=== PATIENT | male | born 1950 | race Caucasian/White ===

== ENCOUNTER 2018-12-01 12:47 | Inpatient (IN) | payer OTHER ==
[~2018-12-01] VITALS: Ht 172.7 cm; Wt 81.6 kg
[~2018-12-01 12:47] MED LIST: MEVACOR 20 MG T20 MG PO; NAPROSYN500 MG PO; SYNTHROID200 MCG PO
[2018-12-01 15:23] VITALS: BP 152/84
[2018-12-01] MEDS ORDERED: OMEPRAZOLE 20 M20 M1 PO (16:04)
[2018-12-01 19:51] VITALS: BP 165/87
--- NOTE | 2018-12-01 20:12 | NUR ---
ARRIVED TO FLOOR FROM [facility] VIA AMBULANCE. PATIENT ALERT AND ORIENTED X 4. ADMISSION HISTORY AND ASSESSMENT COMPLETED. PATIENT 95% ON 2L/NC. PATIENT BECOMES VERY SOB WITH TALKING, ACTIVITY. CONSULTED DR. CHANG AND RECEIVED ORDER FOR TELEMETRY. TRANSFERRED TO ROOM 360 VIA AT 1999. REPORT CALLED TO YENNIFER ON 3W. MEDICATED X 1 WITH TYLENOL FOR HEADACHE AND HELPFUL. ALL ADMISSION PAPERWORK SIGNED. UP AD EVONNE TO BATHROOM. PATIENT STATED NOT EATING WELL BECAUSE FOOD DOESN'T TASTE GOOD. ORDERED ENSURE SUPPLEMENTS WITH MEALS.
[2018-12-01 20:30] VITALS: BP 178/61
--- NOTE | 2018-12-01 22:58 | NUR ---
PT ARRIVED FROM [address] [place] [address] VIA W/C AND PLACED IN ROOM 360. PT ON O2 AT 2L PER NC. REPORTS OCCASIONAL EPISODES OF SOA EVEN WITH JUST SPEAKING. ENCOURAGED PACING OF ALL ACTIVITIES. VOICED UNDERSTANDING TO CALL AND REPORT ANY SOA.
[2018-12-02 04:00] VITALS: BP 168/78
[2018-12-02 05:06] LABS: HEMATOCRIT 40.4 % (42.0-52.0); HEMOGLOBIN 13.1 gm/dL (14.0-18.0); MCH 29.3 pg (26.0-34.0); MCHC 32.4 g/dL (28.0-37.0); MCV 90.6 fL (80.0-100.0); RBC 4.46 mil/uL (4.50-6.00); RDW 14.1 % (10.5-14.5); WBC 16.1 thou/uL (4.0-11.0)
[2018-12-02 05:18] LABS: CALCIUM 9.3 mg/dL (8.5-10.1); CREATININE 0.9 mg/dL (0.7-1.3); POTASSIUM 3.5 mmol/L (3.5-5.1)
--- NOTE | 2018-12-02 06:17 | NUR ---
PT MAKING SLOW PROGRESS TOWARDS GOALS. REPORTS OCCASIONAL EPISODES OF SOA THAT REPORTEDLY RESOLVE WITH REST. NO COMPLAINTS VOICED OVERNIGHT.
[2018-12-02 07:16] VITALS: BP 173/87
[2018-12-02 15:49] VITALS: BP 138/72
[2018-12-02 19:15] VITALS: BP 152/89
[2018-12-03 04:12] VITALS: BP 176/93
--- NOTE | 2018-12-03 05:55 | NUR ---
PT MAKING SLOW PROGRESS TOWARDS GOALS. ON O2 AT 2L PER NC THROUGHOUT THE NIGHT. NO SOA EPISODES REPORTED WHEN UP TO TOILET OR AT REST. OCCASIONAL CONGESTED COUGH. SEE CHARTING.
[2018-12-03 06:28] VITALS: BP 152/93
[2018-12-03 07:48] VITALS: BP 167/100
[2018-12-03 16:16] VITALS: BP 162/89
--- NOTE | 2018-12-03 18:30 | NUR ---
PT IS HAVING A BRONCH TOMORROW @ 0800 WITH ADDI CHANG...CONSENT SIGNED...WILL BE NPO AFTER MIDNIGHT
[2018-12-03 19:40] VITALS: BP 162/94
[2018-12-04] VITALS (9 sets, daily range): BP systolic 136–156; BP diastolic 84–96
[2018-12-04] MEDS ORDERED: PREDNISONE 10 M10 MG PO (11:33)
[2018-12-04] MEDS ORDERED: LEVAQUIN 500 M500 M2 PO (11:33)
--- NOTE | 2018-12-04 12:07 | NUR ---
ASSESSMENT: CM REVIEWED CHART AND MET WITH PATIENT AT THE BEDSIDE. PT WAS ADMITTED WITH PNEUMONIA AND WAS TRANSFERED FROM [place]. PT LIVES IN A HOUSE WITH HIS . PT REPORTS HE HAS ABOUT 3 STEPS TO ENTER WITH NO HANDRAILS. PT REPORTS HE DOES NOT HAVE TO USE ANY STEPS ONCE INSIDE. PT STATES HE AMBULATES INDEPENDENTLY. PT REPORTS THAT HE DOES NOT USE ANY DME OR HAVE THE NEED FOR IT. PT HAS NOT HAD HH IN THE PAST NOR BEEN TO SNF/REHAB. PT DOES NOT ANTICIPATE HAVING ANY NEEDS AT DISCHARGE. PT IS TO HAVE BRONCH TODAY AND MAY POSSIBLY DISCHARGE AFTER.
[2018-12-04] MEDS ORDERED: HOME OXYGEN (15:01)
--- NOTE | 2018-12-04 16:41 | NUR ---
PT HAD BRONCH THIS MORN...WILL HAVE RESULTS IN 10-14 DAYS PER PCP...WILL DISCHARGE TODAY ON O2 1L...
--- NOTE | 2018-12-06 10:07 | PATH ---
[facility] [address] [address] PATHOLOGY RPT PROCEDURE Name: EMELYN CARPIO Room #: 360-P [facility]#: [id number] Admission: 12/01/18 Date of : 52 Discharge: 12/04/18 Report #: [id number] Path Case #: [id number] Note LCA Accession Number: [id number] TESTS RESULT FLAG UNITS REF RANGE LAB Clinician Provided Cytology Information No. of containers..01 Other (Miscellaneous) Source: SLICK MICRO BRUSH TIP DIAGNOSIS: SLICK MICRO BRUSH TIP NEGATIVE FOR MALIGNANT CELLS. NORMAL BRONCHIAL CELLS ARE PRESENT. Pathologist ICD10: 02 J18.9 Signed out by: 02 Juany Cazares MD, Pathologist NPI- [id number] Performed by: Pricilla Patino Bean Picker ([facility]) Gross description: 01 16 ML, COLORLESS, CLEAR /LCS 03/06/1840 0000 Local FLAG LEGEND: L-Low Normal,H-High Normal,LL-Alert Low,HH-Alert High <-Panic Low,>-Panic High,A-Abnormal,AA-Critical Abnormal Performed at: [address] [place] [address] Darin Olsen MD, [address] [address] Juany Cazares MD, Specimen Comment: A courtesy copy of this report has been sent to Specimen Comment: [phone], . Specimen Comment: Report sent to DR CHANG / DR SELLERS Specimen Comment: Report sent to Performed at: [address], [place], [place] [id number] MD Darin Olsen MD Phone: [phone]
--- NOTE | 2018-12-06 10:07 | PATH ---
[facility] [address] [facility] [place] [address] PATHOLOGY RPT PROCEDURE Name: EMELYN CARPIO Room #: 360-P [facility] IN [facility]#: [id number] Admission: 12/01/18 Date of : 52 Discharge: 12/04/18 Report #: [id number] Path Case #: [id number] Note LCA Accession Number: [id number] TESTS RESULT FLAG UNITS REF RANGE LAB Clinician Provided Cytology Information No. of containers..01 Other (Miscellaneous) Source: SLICK BRUSH TIP BRUSHI DIAGNOSIS: 02 SLICK BRUSH TIP BRUSHI NEGATIVE FOR MALIGNANT CELLS. REACTIVE BRONCHIAL CELLS ARE PRESENT. Pathologist ICD10: 02 J18.9 Signed out by: 02 Juany Cazares MD, Pathologist NPI- [id number] Performed by: 01 Pricilla Patino Vascular Neurologist ([facility]) Gross description: 01 10 ML, COLORLESS, CLEAR /LCS 03/06/1840 0000 Local FLAG LEGEND: L-Low Normal,H-High Normal,LL-Alert Low,HH-Alert High <-Panic Low,>-Panic High,A-Abnormal,AA-Critical Abnormal Performed at: [address] [place] [address] Darin Olsen MD, [address] [address] Juany Cazares MD, Specimen Comment: A courtesy copy of this report has been sent to Specimen Comment: [phone], . Specimen Comment: Report sent to DR CHANG / DR SELLERS Specimen Comment: Report sent to Performed at: [address], [place], [place] [id number] MD Darin Olsen MD Phone: [phone]
--- NOTE | 2018-12-06 14:07 | PATH ---
[facility] [address] [place] [address] PATHOLOGY RPT PROCEDURE Name: EMELYN CARPIO Room #: 360-P [facility] IN [facility]#: [id number] Admission: 12/01/18 Date of : 52 Discharge: 12/04/18 Report #: [id number] Path Case #: [id number] Note LCA Accession Number: [id number] TESTS RESULT FLAG UNITS REF RANGE LAB Clinician Provided Cytology Information No. of containers..01 Other (Miscellaneous) Source: SLICK BRUSHING SLIDES DIAGNOSIS: 02 SLICK BRUSHING SLIDES NEGATIVE FOR MALIGNANT CELLS. REACTIVE BRONCHIAL CELLS ARE PRESENT. AIR-DRYING ARTIFACT WITH LACK OF CELL PRESERVATION. Pathologist ICD10: 02 J18.9 Signed out by: 02 Juany Cazares MD, Pathologist NPI- [id number] Performed by: 01 Pricilla Patino Primary Operator ([facility]) FLAG LEGEND: L-Low Normal,H-High Normal,LL-Alert Low,HH-Alert High <-Panic Low,>-Panic High,A-Abnormal,AA-Critical Abnormal Performed at: [address] [place] [address] Darin Olsen MD, [address] [address] Juany Cazares MD, Specimen Comment: A courtesy copy of this report has been sent to Specimen Comment: [phone], . Specimen Comment: Report sent to DR CHANG / DR SELLERS Specimen Comment: Report sent to Specimen Comment: A duplicate report has been generated due to demographic updates. Performed at: [address], [place], [place] [id number] MD Darin Olsen MD Phone: [phone]
== END 2018-12-04 17:00 | disposition home or self-care (01) | DRG 193 ==
LOC: 4E 12:47 → 3W 15:12 → 4S 15:12 → 3W 21:54
PROVIDERS: Hospitalist; ADMIT Hospitalist
PROC: 0B9G8ZX Drainage of Left Upper Lung Lobe, Via Natural or Artificial Opening Endoscopic, Diagnostic (ICD-10-PCS; principal; 2018-12-04)
PROC: 0BDG8ZX Extraction of Left Upper Lung Lobe, Via Natural or Artificial Opening Endoscopic, Diagnostic (ICD-10-PCS; principal; 2018-12-04)
PROC: 0B918ZZ Drainage of Trachea, Via Natural or Artificial Opening Endoscopic (ICD-10-PCS; principal; 2018-12-04)
DX: J18.9 Pneumonia, unspecified organism (principal); J96.01 Acute respiratory failure with hypoxia; R04.2 Hemoptysis; I10 Essential (primary) hypertension; E03.9 Hypothyroidism, unspecified; E78.00 Pure hypercholesterolemia, unspecified; K21.9 Gastro-esophageal reflux disease without esophagitis; G47.33 Obstructive sleep apnea (adult) (pediatric); J43.9 Emphysema, unspecified; Z88.2 Allergy status to sulfonamides; Z79.899 Other long term (current) drug therapy; Z86.14 Personal history of Methicillin resistant Staphylococcus aureus infection; Z87.891 Personal history of nicotine dependence
CPT/HCPCS: 10779; 10879; 50010; 62110; 62900

== ENCOUNTER 2018-12-13 11:06 | Inpatient (IN) | payer OTHER ==
[~2018-12-13] VITALS: Ht 170.2 cm; Wt 74.0 kg
[~2018-12-13 11:06] MED LIST changes: +HOME OXYGEN; +LEVAQUIN 500 M500 M2 PO; +OMEPRAZOLE 20 M20 M1 PO; +PREDNISONE 10 M10 MG PO
[2018-12-13 13:06] VITALS: BP 122/84
--- NOTE | 2018-12-13 14:15 | NUR ---
ASSUMED CARE OF PATIENT AROUND 1330. PATIENT WAS DIRECT ADMISSION FROM PRIMARY CARE PROVIDER. PATIENT VITALS STABLE. PATIENT HERE WITH PNUEMONIA. CURRENTLY TRYING TO OBTAIN RECORDS AND IMAGES FROM [facility].
--- NOTE | 2018-12-13 14:22 | NUR ---
NOTIFIED PHYSICIAN ABOUT POSSIBILITY OF TB ON TODAY'S CXR - CLARIFIED THAT PATIENT WAS BRONCH AND TESTED NEGATIVE FOR TB DURING LAST MONTHS ADMISSION. NO NEED FOR ISOLATION PRECAUTIONS.
[2018-12-13 15:05] LABS: HEMATOCRIT 40.8 % (42.0-52.0); HEMOGLOBIN 13.5 gm/dL (14.0-18.0); MCH 29.5 pg (26.0-34.0); MCV 89.2 fL (80.0-100.0); RBC 4.57 mil/uL (4.50-6.00); RDW 13.6 % (10.5-14.5); WBC 12.8 thou/uL (4.0-11.0)
[2018-12-13 15:35] VITALS: BP 130/85
--- NOTE | 2018-12-13 16:58 | NUR ---
ASSUMED CARE OF PATIENT AROUND 1330. PATIENT VITALS STABLE WITH SHALLOW BREATHS ON ROOM AIR. PATIENT HAS ATYPICAL PNEUMONIA, PATIENT GETTING INFECTIOUS DISEASE AND PULMONARY CONSULTS. CHEST XRAY SHOWS LESION IN THE SLICK.
[2018-12-13 19:25] VITALS: BP 126/67
[2018-12-14 00:49] VITALS: BP 123/78
[2018-12-14 05:53] VITALS: BP 117/75
--- NOTE | 2018-12-14 06:12 | NUR ---
Dr. Hernandez came in to see pt. last night. Pt. moved to a negative pressure to R/O TB. TB skin test administered on right inner FA.MRSA and RSV swab sent to lab. Sputum for AFB x2 sent then another one needs to be collected per ID.Urine specimen also sent for legionella. Pt. kept NPO after [address] chest. He requested for sleep med last night, melatonin given.He slept interittently during the night. Tolerating room air well with no respiratory distress. Nausea med given x 2 this shift with good relief. Voided per urinal in bathroom. Will continue to monitor.
[2018-12-14 07:34] VITALS: BP 118/76
[2018-12-14 11:30] LABS: CALCIUM 8.5 mg/dL (8.5-10.1); CREATININE 1.1 mg/dL (0.7-1.3)
[2018-12-14 16:00] VITALS: BP 130/73
--- NOTE | 2018-12-14 18:19 | NUR ---
ASSUMED CARE OF PT AT 0700. PT ALERT AND ORIENTED, COMPLAINING OF INTERMITTENT NAUSEA. OCCASIONAL COUGH. DENIES PAIN. SPUTUM SAMPLE SUBMITTED TO LAB. UP AD EVONNE W/ STEADY GAIT. MAINTENANCE FLUIDS AND ABX INFUSING PER ORDER. VITALS STABLE. AFEBRILE. ISOLATION PRECAUTIONS PENDING RESULTS. CALLS OUT APPROPRIATELY. CT CHEST W/ CONTRAST PERFORMED TODAY. SLOW PROGRESS TOWARD POC GOALS.
[2018-12-14 20:10] VITALS: BP 120/75
--- NOTE | 2018-12-14 21:17 | HC ---
[facility] [place] [address] CONSULTATION Name: EMELYN LINDSAY Room #: 349-I ADM IN .R.#: [id number] Admission: 12/13/18 Attend Phys: Brian Lindsay MD Discharge: Date of : 52 Report #: [id number] THIS REPORT FOR: //name// CC: Alvarez Lindsay INFECTIOUS DISEASE CONSULTATION REASON FOR CONSULTATION: I was asked to evaluate the patient concerning cavitary left lung process. HISTORY OF PRESENT ILLNESS: The patient is a 68-year-old from [facility] who was initially hospitalized approximately a month ago where he developed acute onset of fever, chills, sweats, malaise associated with increased cough and purulent sputum production and intermittent hemoptysis. He was treated with antibiotic therapy for several days and was not improving; therefore, was transferred from [facility] on 12/01/2018. There he underwent bronchoscopy. AFB smear was negative. Fungal smears were negative. Cultures are pending. Treated with IV followed by oral antibiotic therapy. By 12/04/2018, he was discharged on Levaquin and at his followup visit today, he was found to have persistent symptoms, intermittent low-grade fever, continued weight loss of approximately 30 pounds. He has had poor sleep. Previous CT imaging had shown severe bullous changes in the left upper lobe. He has persistent changes there on chest x-ray. He underwent a bronchoscopy on 12/01/2018. Stains were negative for AFB and fungus. Cultures are negative to date. No bacteria cultures were done. Viral studies are pending. Cytology was negative for malignancy. The patient denies any rashes, joint pains, headache or pharyngitis symptoms. No aspiration episodes. He has upper and lower dentures. Denies any nausea, vomiting or diarrhea. No dysuria or frequency. No blood in his urine or blood in his stool. He works in construction. No HIV risk factors. Past smoker. No diabetes. Again, has a history of bullous COPD. REVIEW OF SYSTEMS: Ten-point review was negative other than what has been described above. ALLERGIES: SULFA. MEDICATIONS: As noted on his MAY. He had previously been treated with azithromycin, ceftriaxone followed by vancomycin and Zosyn followed by Levaquin and now on Zosyn. PAST MEDICAL HISTORY: Coronary artery disease, hypertension, peripheral vascular disease, chronic kidney disease. COPD, hypertension, gastroesophageal reflux, hypothyroid. FAMILY HISTORY: Noncontributory. [facility] [address] [place] [address] CONSULTATION Name: EMELYN LINDSAY Tom[place] Room #: 349-I [facility] IN [facility]#: [id number] Admission: 12/13/18 Attend Phys: Brian Lindsay MD Discharge: Date of : 52 Report #: [id number] SOCIAL HISTORY: Smoker of cigarettes, quit a year ago. Moderate alcohol intake. No tuberculosis exposure. Does not recall having a previous PPD test. Underlying chronic obstructive pulmonary disease. PHYSICAL EXAMINATION: VITAL SIGNS: The patient was afebrile and hemodynamically stable. GENERAL: He is alert and cooperative and pleasant, in no acute distress. O2 saturation normal on room air. SKIN: Without rash or decubitus. No palpable adenopathy. HEENT: Eyes, without scleral icterus. Mouth without mucositis in upper and lower dentures. NECK: Supple. LUNGS: Decreased breath sounds bilaterally. No consolidation. HEART: Regular, without murmur, gallop or rub. ABDOMEN: Soft, nontender, no hepatosplenomegaly or mass. GENITAL AND RECTAL: Not performed. EXTREMITIES: Without clubbing, cyanosis or edema. NEUROLOGIC: Cranial nerves intact. Strength in upper and lower extremities was normal. Mood was normal. LABORATORY STUDIES: ESR 99. CRP 182. Hemoglobin 13.5, white count 12.8 and platelet count 470,000. Procalcitonin 0.09. Chemistry is pending. Chest x-ray with pleural thickening and cavitary changes extending through the left upper lobe measuring 7.5 cm in size. This has progressed from 2 weeks ago. IMPRESSION: A 68-year-old with underlying bullous emphysema with bullous lesions in the left upper lobe with persistent infiltrate, which has progressed. The patient has lost 30 pounds of weight, although initial smear was negative from his bronchoscopy. No diagnosis has been established. I have not seen any serologic studies or screening tests to work this up. Still we would consider infectious as a leading to his presentation. Along with this has been weight loss. RECOMMENDATIONS: We will obtain further sputum samples for AFB and bacterial pathogens. Check serologic studies antigens and empiric antibiotic coverage. We will place the patient in airborne precautions until further workup is established, although it is low risk for tuberculosis transmission and that he has had his bronchoscopy with a negative AFB smear. I would like to get more samples before we clear him from isolation. <ELECTRONICALLY SIGNED> By: Tony Hernandez MD 12/14/187 2319 03 Tony Hernandez MD /nt
[2018-12-14 22:07] LABS: IgA 201 mg/dL (61-437); IgG 1085 mg/dL (700-1600); IgM 76 mg/dL (20-172)
[2018-12-15 03:08] LABS: HIV ANTIBODY Non Reactive (Non Reactive)
[2018-12-15 03:30] VITALS: BP 137/77
--- NOTE | 2018-12-15 04:46 | NUR ---
VSS FOR SHIFT, NO COMPLAINTS OF NAUSEA OVERNIGHT. PT STATES ABDOMEN AND CHEST SORE FROM COUGHING, GAVE ORAL PAIN MEDS AND MELATONIN TO HELP SLEEP. SLEEP WAS BETTER FOR PT THIS EVENING. STANDBY ASSIST TO BATHROOM. HOURLY ROUNDING.
[2018-12-15 07:02] VITALS: BP 123/74
--- NOTE | 2018-12-15 14:53 | NUR ---
INITIAL ASSESSMENT: SW reviewed chart and spoke with nursing and attending physician. Pt was admitted from home due to pneumonia. Pt is currently in isolation to r/o TB. Pt with hx of HTN/COPD/BRENDAN. Pt is currently on IV abx. Per chart, pt is alert/orientated x 4. Pt lives at home with his . There are 3 steps to enter the home. No steps inside. Prior to admission, pt was independent with ADLs. No use of DME. NO hx of HH services. Pt has home O2 in place through [employer]. No weekend discharge planned. SW is following to assist as needed with discharge planning.
[2018-12-15 15:50] VITALS: BP 128/78
--- NOTE | 2018-12-15 17:06 | NUR ---
pt's assessment has done, pt is A&OX3, pt is continuing iv ABX and breathing treatment, pt stll has caughing ,but pt denies sob and pain. pt 's TB skin result will read at 0039am after MN.RN will report to next shift.
--- NOTE | 2018-12-15 17:16 | NUR ---
pt's assessment has done, pt is A&OX3, PT has dizzness when pt gets up or change position, pt's vs and o2sat are stable, pt has starts IV NS @125ML/HR, and methylprednisolone 40mg iv qid, pt is high fall risk, Rn has teaching pt to call for help.pt deies pain and n/v by this time.
[2018-12-15 19:01] VITALS: BP 134/77
--- NOTE | 2018-12-16 03:08 | NUR ---
ASSESSMENT: PT REMAIN ALERT AND ORIENT TIMES FOUR. UP AD EVONNE TO BR WITH STEADY GAIT. VSS, AFEBRILE. PRODUCTIVE COUGH CONTINUES, REFUSED QUAIFENESIN PRN. TB SITE NEGATIVE, PT TAKEN OUT OF ISOLATION. PT REQUEST TO HAVE SLEEPING AID, SLEPT FOR THE SHIFT. DENIES PAIN, NOT ON THE MONITOR. SLOW PROGRESS TOWARDS DC GOAL. WILL CONTINUE TO MONITOR.
[2018-12-16 03:18] VITALS: BP 135/76
[2018-12-16 05:22] LABS: CALCIUM 8.3 mg/dL (8.5-10.1); CREATININE 0.9 mg/dL (0.7-1.3); POTASSIUM 3.7 mmol/L (3.5-5.1)
[2018-12-16 05:33] LABS: HEMATOCRIT 33.6 % (42.0-52.0); MCH 29.8 pg (26.0-34.0); MCHC 32.8 g/dL (28.0-37.0); MCV 90.7 fL (80.0-100.0); RBC 3.7 mil/uL (4.50-6.00); RDW 13.4 % (10.5-14.5); WBC 5.5 thou/uL (4.0-11.0)
[2018-12-16 07:00] VITALS: BP 138/74
--- NOTE | 2018-12-16 10:04 | NUR ---
pt's assessment has done, pt is A&OX3, PT is continuing IV fliud and iv abx, pt's vs and o2sat are stable, pt denies pain and sob at this time, pt will have slowly meeting care plan goals.
--- NOTE | 2018-12-16 10:07 | NUR ---
pt is resfering to [facility] 4 W NOW, pt's famliy stay with pt .
[2018-12-16 10:35] VITALS: BP 138/78
--- NOTE | 2018-12-16 15:29 | NUR ---
Transferred from [facility], report received from Staff Garret. Pt transferred to room safely. A+Ox4. Due medications given as prescribed. With NS at 75cc/hr, infusing well at R AC. Vital signs stable. On stand by assist d/t SOA. Dr Ohara informed re: transfer. With at bedside. Assisted in ADLs, pt had a shower today. Pt complained that he has not had a bowel movement for more than 2 days, no scheduled or PRN laxative prescribed- Dr Ohara informed; medication given as prescribed.
[2018-12-16 19:48] VITALS: BP 149/82
[2018-12-17 05:23] VITALS: BP 159/78
[2018-12-17 05:41] LABS: HEMATOCRIT 33.9 % (42.0-52.0); HEMOGLOBIN 11.2 gm/dL (14.0-18.0); MCH 29.7 pg (26.0-34.0); MCV 90.1 fL (80.0-100.0); RBC 3.76 mil/uL (4.50-6.00); RDW 13.3 % (10.5-14.5); WBC 5.3 thou/uL (4.0-11.0)
--- NOTE | 2018-12-17 05:45 | NUR ---
PATIENT ALERT AND ORIENTED X4. UP ADLIB TO BATHROOM. IVF INFUSING W/O COMPLICATION. MEDICATED FOR PAIN X1 AND GIVEN SLEEP AIDE. COOPERATIVE WITH CARE, HOWEVER, DID NOT SLEEP WELL. WILL MONITOR.
[2018-12-17 05:49] LABS: CALCIUM 8.4 mg/dL (8.5-10.1); CREATININE 0.9 mg/dL (0.7-1.3); POTASSIUM 3.6 mmol/L (3.5-5.1)
[2018-12-17 07:32] VITALS: BP 146/85
[2018-12-17 15:24] VITALS: BP 168/87
--- NOTE | 2018-12-17 18:31 | NUR ---
Assumed patient care at 0715. Patient has been up to use the restroom and to take a shower. was present when he took his shower. He has been medication compliant. Vital signs have been stable. Patient has voiced no complaints of pain. Food and fluid intake has been adequate. POC followed.
[2018-12-17 19:35] VITALS: BP 170/91
[2018-12-18] VITALS: BP 140/78
[2018-12-18 03:45] VITALS: BP 149/98
[2018-12-18 07:37] VITALS: BP 136/93
--- NOTE | 2018-12-18 13:32 | NUR ---
Assumed patient care at 0715. Patient's vital signs have been stable. He is up ad jaron to use the restroom and needs no assistance with ambulation. He denies pain except when he coughs. His cough has been non-productive. Patient has been compliant with his medications. POC followed. Patient is to Discharge today. Will continue to monitor.
[2018-12-18] MEDS ORDERED: CEFDINIR300 MG PO (15:12)
[2018-12-18] MEDS ORDERED: AZITHROMYCIN 2250 MG PO (15:12)
--- NOTE | 2018-12-18 15:40 | NUR ---
CARE TEAM INDICATED THAT PT IS MEDICALLY STABLE TO DC HOME THIS DAY. PT IS TO DC HOME WITH SELF CARE. PT HAD ALL RECOMMENDED DME. NO OTHER CM INTERVENTION INDICATED. CASE CLOSED.
[2018-12-18 16:02] VITALS: BP 136/93
--- NOTE | 2018-12-18 16:45 | NUR ---
Patient discharged at 1435 via escorted wheelchair. Patient and verbalized an understanding to all discharge instructions before signing discharge paperwork.
[2018-12-18 22:09] LABS: ADENOVIRUS Negative (Negative); INFLUENZA A Negative (Negative); INFLUENZA B Negative (Negative); METAPNEUMOVIRUS Negative (Negative); PARAINFLUENZA 1 Negative (Negative); PARAINFLUENZA 2 Negative (Negative); PARAINFLUENZA 3 Negative (Negative); RHINOVIRUS Negative (Negative); RSV A Negative (Negative); RSV B Negative (Negative)
--- NOTE | 2018-12-19 07:59 | EKG ---
[place] [address] [facility] [employer] [place] [address] ELECTROCARDIOGRAM REPORT Name: LINDSAYEMELYN Room #: 449-I [facility] IN M.R.#: [id number] Admission: 12/13/18 Attend Phys: Brian Lindsay MD Discharge: 12/18/18 Date of : 52 Report #: [id number] THIS REPORT FOR: //name// [facility] Test Date: 2018-12-18 Test Time: 15:21:10 Pat Name: EMELYN LINDSAY Department: Room: 449 I Gender: M Director Of Occupational Health: ADRYAN : 1950 Requested By: Tony Hernandez Order Number: [id number] MD: Jacky Centeno Measurements Intervals [place] Rate: 87 P: 24 MD: 165 QRS: -4 QRSD: 82 T: 42 QT: 371 QTc: 447 Interpretive Statements Sinus rhythm Ventricular premature complex No previous ECG available for comparison Electronically Signed On 12-19-2018 7:59:43 CDT by Jacky Centeno [email or web address] <ELECTRONICALLY SIGNED> By: Jacky Centeno MD, FACC 12/19/18 0759 1521 1521 Jacky Centeno MD, FACC /EPI
[2018-12-19 23:07] LABS: HISTOPLASMA MYCELIAL-CF Negative (Neg:<1:2)
[2018-12-21 08:57] LABS: HISTOPLASMA MYCELIAL-ID Negative (Negative)
== END 2018-12-18 16:56 | disposition home or self-care (01) | DRG 871 ==
LOC: RAD 11:06 → 3W 12:30 → 4W 12-16 10:06 → ENTRNSPT 12-18 16:21 → 4W 12-18 16:56
PROVIDERS: Hospitalist; Specialist; ADMIT Internal Medicine
PROC: 3E0234Z Introduction of Serum, Toxoid and Vaccine into Muscle, Percutaneous Approach (ICD-10-PCS; principal; 2018-12-15)
DX: A41.9 Sepsis, unspecified organism (principal); J18.1 Lobar pneumonia, unspecified organism; J98.4 Other disorders of lung; K21.9 Gastro-esophageal reflux disease without esophagitis; G47.33 Obstructive sleep apnea (adult) (pediatric); I25.10 Atherosclerotic heart disease of native coronary artery without angina pectoris; I73.9 Peripheral vascular disease, unspecified; N18.9 Chronic kidney disease, unspecified; I12.9 Hypertensive chronic kidney disease with stage 1 through stage 4 chronic kidney disease, or unspecified chronic kidney disease; E03.9 Hypothyroidism, unspecified; J43.9 Emphysema, unspecified; E78.00 Pure hypercholesterolemia, unspecified; R07.89 Other chest pain; Z87.891 Personal history of nicotine dependence; Z88.2 Allergy status to sulfonamides; Z79.899 Other long term (current) drug therapy; Z23 Encounter for immunization
CPT/HCPCS: 10040; 10080